=== PATIENT | female | born 1995 | race Caucasian/White ===

== ENCOUNTER 2021-01-26 00:38 | Emergency (ER) | payer OTHER ==
[~2021-01-26] VITALS: Ht 167.6 cm; Wt 49.9 kg
[2021-01-26 00:43] VITALS: BP 115/68
[2021-01-26 01:03] VITALS: BP 115/68
--- NOTE | 2021-01-26 01:05 | NUR ---
PATIENT [facility]. PATIENT EXAMINED BY DR. CHAVIS. PATIENT MEDICALLY CLEARED AND RELEASED IN CUSTODY IN STABLE CONDITION. ORIGINAL PRE-BOOK FORM GIVEN TO OFFICER ETHEL.
== END 2021-01-26 01:05 ==
LOC: MED 00:38
DX: Z02.89 Encounter for other administrative examinations (principal); V98.8XXA Other specified transport accidents, initial encounter; Y93.89 Activity, other specified; Y92.89 Other specified places as the place of occurrence of the external cause; Y99.8 Other external cause status
CPT/HCPCS: 99283